=== PATIENT | male | born 1960 | race Caucasian/White ===

== ENCOUNTER 2016-05-07 09:17 | Inpatient (IN) | payer OTHER ==
[~2016-05-07] VITALS: Ht 180.3 cm; Wt 107.6 kg
[2016-05-07] VITALS (8 sets, daily range): BP systolic 135–168; BP diastolic 75–98; PULSE 47–73; RESP 17–20; TEMP 97.8–98.2; O2SAT 94–98
[~2016-05-07 09:17] MED LIST: HYDR-3516 PO; LIPI20TA PO; MECL-62 PO; MUCI600T PO; TOPA25TA8 PO
--- NOTE | 2016-05-07 09:41 | PD ---
HPI Chief Complaint: Headache Time Seen by Provider: 09:33 Travel History International Travel<30 days: No Contact w/Intl Traveler<30days: No Traveled to known affect area: No History of Present Illness HPI 55-year-old male with history of dural venous thrombosis in 2000 and was on anticoagulation for about 3 or 4 years, hospitalization in October 2005 with an MRV with far right transverse venous sinus thrombosis and was on Xarelto, pseudotumor cerebri status post VOUCHER CLERK shunt placement on 12/17/15, no longer on anticoagulation, here for evaluation of headache. Patient reports severe left- sided headache described as an ice pick stabbing into left-sided his head. He had a mild headache last night before going to sleep, however when he woke up this morning his headache was severe. He had nausea and a couple episodes of vomiting this morning. Pain is severe, constant, worse with movements and lying flay, associated with photophobia. No fevers or recent illness. No paresthesias or motor deficits. He has not taken anything for the pain. PFSH Past Medical History Arthritis: No Asthma: Yes Blood Disorders: No Heart Rhythm Problems: No Cancer: No Cardiovascular Problems: Yes (cardiac arrest 2000) High Cholesterol: Yes Chest Pain: No Congestive Heart Failure: No COPD: No Cerebrovascular Accident: Yes (cva 2000) Diminished Hearing: No Endocrine: No Gastrointestinal Disorders: No GERD: No Genitourinary: No Headaches: Yes (HX PAPPILARIEDEMA, ICP, ) Hiatal Hernia: No Hypertension: No Immune Disorder: No Implanted Vascular Access Dvce: No Musculoskeletal: No Neurologic: Yes Psychiatric: No Reproductive: No Respiratory: Yes Immunizations Current: No Migraines: No Seizures: Yes (QUESTIONALBLE FOCAL 2000, NO LONGER MEDICATED FOR) Sleep Apnea: No Ulcer: No Past Surgical History Abdominal Surgery: No Cardiac Surgery: Yes Ear Surgery: Yes Endocrine Surgery: No Eye Surgery: No Genitourinary Surgery: No Gynecologic Surgery: No Neurologic Surgery: No Oral Surgery: Yes (tonsils ) Thoracic Surgery: No Other Surgery: Yes (SHUNT 12/16, clots in brain x 2) Social History Alcohol Use: No Tobacco Use: Yes (02/20 PPD) Substance Use: No Allergies-Medications (Allergen,Severity, Reaction): Coded Allergies: Levaquin (Verified Allergy, Severe, Anaphylaxis, 05/07/16) Uncoded Allergies: Heart lead stickers (Allergy, Mild, 01/18/16) skin truns red and comes off when stickies come off Reported Meds & Prescriptions Reported Meds & Active Scripts Active Topamax (Topiramate) 25 Mg Tab 25 Mg PO DAILY Lipitor (Atorvastatin Calcium) 20 Mg Tab 20 Mg PO DAILY Reported Aspirin 81 Mg Chew 81 Mg CHEW DAILY Review of Systems Except as stated in HPI: all other systems reviewed are Neg Physical Exam Narrative GENERAL: Well-developed, well-nourished, no acute distress. SKIN: Warm and dry. No rash. HEAD: Atraumatic. Normocephalic. Right scalp with subcutaneous VOUCHER CLERK shunt palpable with depressible port. EYES: Pupils equal and round. No scleral icterus. No injection or drainage. Horizontal and vertical nystagmus. ENT: Mucous membranes pink and moist. NECK: Trachea midline. No JVD. No nuchal rigidity. CARDIOVASCULAR: Regular rate and rhythm. RESPIRATORY: No accessory muscle use. Clear to auscultation. Breath sounds equal bilaterally. GASTROINTESTINAL: Abdomen soft, non-tender, nondistended. MUSCULOSKELETAL: No obvious deformities. No clubbing. No cyanosis. No edema. NEUROLOGICAL: Awake and alert. No obvious cranial nerve deficits. Motor grossly within normal limits. Normal speech. PSYCHIATRIC: Appropriate mood and affect; insight and judgment normal. Data Data Last Documented VS Vital Signs Date Time Temp Pulse Resp B/P Pulse Ox O2 Delivery O2 Flow Rate FiO2 05/07/16 09:42 98 05/07/16 09:18 98.1 73 17 155/98 Orders Complete Blood Count With Diff (05/07/16 09:33) Comprehensive Metabolic Panel (05/07/16 09:33) Prothrombin Time / Inr (Pt) (05/07/16 09:33) Act Partial Throm Time (Ptt) (05/07/16 09:33) Iv Access Insert/Monitor (05/07/16 09:33) Ecg Monitoring (05/07/16 09:33) Oximetry (05/07/16 09:33) Sodium Chloride 0.9% Flush (Ns Flush) (05/07/16 09:45) Metoclopramide Inj (Reglan Inj) (05/07/16 09:45) Hydromorphone Pf Inj (Dilaudid Pf Inj) (05/07/16 09:45) Sodium Chlor 0.9% 1000 Ml Inj (Ns 1000 M (05/07/16 09:45) Ct Brain W/O Iv Contrast(Rout) (05/07/16 ) Shunt Series (05/07/16 ) Mrv Brain W Contrast (05/07/16 ) Labs Laboratory Tests Test 05/07/16 10:00 White Blood Count 5.7 TH/MM3 Red Blood Count 4.59 MIL/MM3 Hemoglobin 15.0 GM/DL Hematocrit 42.0 % Mean Corpuscular Volume 91.5 FL Mean Corpuscular Hemoglobin 32.6 PG Mean Corpuscular Hemoglobin 35.6 % Concent Red Cell Distribution Width 13.0 % Platelet Count 221 TH/MM3 Mean Platelet Volume 8.2 FL Neutrophils (%) (Auto) 66.4 % Lymphocytes (%) (Auto) 24.0 % Monocytes (%) (Auto) 4.6 % Eosinophils (%) (Auto) 4.1 % Basophils (%) (Auto) 0.9 % Neutrophils # (Auto) 3.8 TH/MM3 Lymphocytes # (Auto) 1.4 TH/MM3 Monocytes # (Auto) 0.3 TH/MM3 Eosinophils # (Auto) 0.2 TH/MM3 Basophils # (Auto) 0.1 TH/MM3 CBC Comment DIFF FINAL Differential Comment Prothrombin Time 11.2 SEC Prothromb Time International 1.0 RATIO Ratio Activated Partial 27.8 SEC Thromboplast Time Sodium Level 140 MEQ/L Potassium Level 3.9 MEQ/L Chloride Level 105 MEQ/L Carbon Dioxide Level 28.0 MEQ/L Anion Gap 7 MEQ/L Blood Urea Nitrogen 13 MG/DL Creatinine 1.00 MG/DL Estimat Glomerular Filtration 78 ML/MIN Rate Random Glucose 125 MG/DL Calcium Level 8.5 MG/DL Total Bilirubin 0.3 MG/DL Aspartate Amino Transf 11 U/L (AST/SGOT) Alanine Aminotransferase 20 U/L (ALT/SGPT) Alkaline Phosphatase 88 U/L Total Protein 7.2 GM/DL Albumin 3.3 GM/DL [facility] Medical Decision Making Medical Screen Exam Complete: Yes Emergency Medical Condition: Yes Medical Record Reviewed: Yes Differential Diagnosis VOUCHER CLERK shunt malfunction, dural venous thrombosis, tension headache, cluster headache, migraine headache, SAH/meningitis/encephalitis less likely, Narrative Course Vital signs show heart rate 73, blood pressure 155/98, pulse ox 98% on room air , oral temp of 98.1F. CBC is unremarkable. CMP is unremarkable. CT head: No acute intracranial disease. Scattered sinus disease. Shunt series: Intact shunt. Case discussed with on-call neurosurgeon Dr. Frederick who recommends MRV to rule out thrombosis. If this is negative, shuntogram may need to be ordered. The patient was given a liter of normal saline IV, IV Reglan, and IV Dilaudid with moderate improvement in symptoms. He now rates his pain at 4 out of 10. Case discussed with medical accountant Dr. Michel. The patient will be admitted to their service. Diagnosis Primary Impression: Intractable headache Qualified Code: R51 - Acute intractable headache, unspecified headache type Admitting Information Admitting Physician Requests: Admit Joel Delgado MD May 07, 2016 09:41
[2016-05-07] MEDS ORDERED: SODIUM CHLORIDE 0.9% FLUSH 5 ML FLUSH IVF PRN (09:45)
[2016-05-07] MEDS ORDERED: HYDROmorphone HCL PF 1 MG/ML VIAL IV PUSH ONE (09:45)
[2016-05-07] MEDS ORDERED: SODIUM CHLOR 0.9% 1000 ML INJ 1,000 ML IV ONE (09:45)
[2016-05-07] MEDS ORDERED: METOCLOPRAMIDE HCL 10 MG/2 ML VIAL IV PUSH ONE (09:45)
--- NOTE | 2016-05-07 10:00 | RADRPT ---
EXAM DATE/TIME: 05/07/2016 09:46 [facility] COMPARISON: CT BRAIN W/O CONTRAST, January 19, 2016, 4:16. INDICATIONS : Severe headache. RADIATION DOSE: 46.43 CTDIvol (mGy) MEDICAL HISTORY : Seizures. SURGICAL HISTORY : Shunt. ENCOUNTER: Initial ACUITY: 1 day PAIN SCALE: 8/10 LOCATION: Bilateral cranial TECHNIQUE: Multiple contiguous axial images were obtained of the head. Using automated exposure control and adj ustment of the mA and/or kV according to patient size, radiation dose was kept as low as reasonably a chievable to obtain optimal diagnostic quality images. FINDINGS: CEREBRUM: A right frontal ventriculostomy catheter is unchanged in position. The ventricles are normal for age. No evidence of midline shift, mass lesion, hemorrhage or acute infarction. No extra-axial fluid co llections are seen. POSTERIOR FOSSA: The cerebellum and brainstem are intact. The 4th ventricle is midline. The cerebellopontine angle i s unremarkable. EXTRACRANIAL: The visualized portion of the orbits is intact. Scattered sinus disease. SKULL: The calvaria is intact. No evidence of skull fracture. CONCLUSION: No acute intracranial disease. Scattered sinus disease. Tre Marks MD on May 07, 2016 at 9:57 Board Certified Radiologist. This report was verified electronically.
[2016-05-07 10:21] LABS: AUTOMATED NEUTROPHIL # 3.8 TH/MM3 (1.8-7.7); BASOPHIL # 0.1 TH/MM3 (0-0.2); BASOPHIL % 0.9 % (0.0-2.0); EOSINOPHIL # 0.2 TH/MM3 (0-0.4); EOSINOPHIL % 4.1 % (0.0-4.0); HEMO FLAGS DIFF FINAL; LYMPHOCYTE # 1.4 TH/MM3 (1.0-4.8); MEAN CELL VOLUME 91.5 FL (80.0-100.0); MEAN CORPUSCULAR HEMOGLOBIN 32.6 PG (27.0-34.0); MEAN CORPUSCULAR HGB CONC 35.6 % (32.0-36.0); MONO % 4.6 % (0.0-8.0); NEUT % 66.4 % (16.0-70.0); PLATELET COUNT 221 TH/MM3 (150-450); RED BLOOD COUNT 4.59 MIL/MM3 (4.50-5.90); WHITE BLOOD COUNT 5.7 TH/MM3 (4.0-11.0)
--- NOTE | 2016-05-07 10:25 | RADRPT ---
EXAM DATE/TIME: 05/07/2016 09:56 [facility] COMPARISON: SHUNT SERIES, January 18, 2016, 21:52. INDICATIONS : Head pressure post shunt placement in November. MEDICAL HISTORY : None. SURGICAL HISTORY : Shunt. ENCOUNTER: Initial ACUITY: 4 - 6 months PAIN SCORE: 6/10 LOCATION: Bilateral head. FINDINGS: Radiograph of the skull, neck, chest and abdomen performed to evaluate shunt patency. The shunt cath eter is seen entering the right frontal region with its tip in the region of the body of the left lat eral ventricle The catheter is continuous in its course terminating in the left pelvis No catheter disruption is roger ntified. The visualized heart, lungs and abdominal structures are intact. CONCLUSION: Intact shunt. Tre Marks MD on May 07, 2016 at 10:22 Board Certified Radiologist. This report was verified electronically.
[2016-05-07] MEDS ORDERED: ASPI81CH CHEW (10:27)
[2016-05-07 10:33] LABS: APTT (PATIENT) 27.8 SEC (24.3-30.1); PROTHROMBIN TIME - PATIENT 11.2 SEC (9.8-11.6)
[2016-05-07 10:46] LABS: ALKALINE PHOSPHATASE 88 U/L (45-117); ALT (GPT) 20 U/L (12-78); ANION GAP 7 MEQ/L (5-15); AST (GOT) 11 U/L (15-37); BLOOD UREA NITROGEN 13 MG/DL (7-18); CHLORIDE 105 MEQ/L (98-107); GLOMERULAR FILTRATION RATE 78 ML/MIN (>89); SODIUM (NA) 140 MEQ/L (136-145); TOTAL BILIRUBIN ADULT 0.3 MG/DL (0.2-1.0)
[2016-05-07 10:59] LABS: POTASSIUM 3.9 MEQ/L (3.5-5.1)
[2016-05-07] MEDS ORDERED: SODIUM CHLORIDE 0.9% FLUSH 5 ML FLUSH FLUSH PRN (11:45)
[2016-05-07] MEDS ORDERED: NALOXONE HCL 0.4 MG/ML AMP IV PRN (11:45)
[2016-05-07] MEDS ORDERED: ACETAMINOPHEN/HYDROcodone 325 MG/5 MG TAB PO PRN (11:45)
[2016-05-07] MEDS ORDERED: ACETAMINOPHEN 325 MG TAB PO PRN (11:45)
[2016-05-07] MEDS ORDERED: ENALAPRILAT 1.25 MG/ML VIAL IV PRN (11:45)
--- NOTE | 2016-05-07 11:51 | HHI.HP ---
[facility] Service Family Medicine Primary Care Physician No Primary Care Physician Admission Diagnosis intractable headache Diagnoses: Chief Complaint: headache International Travel<30 Days: No Contact w/Intl Traveler<30days: No Known Affected Area: No History of Present Illness 55 y/o male with history of dural venous thrombosis and pseudotumor cerebri, s/ p HIDE AND SKIN CLASSER shunt placement presents with headache. States he sneezed last night, which game him a mild headache. Went to sleep. Woke up with a headache, rates it 10/10, very severe. Then his nausea/vomiting started. Vomited several times. Also having some blurry vision. The pain is mainly on his left temporal side. Been constant, pain waxed and wained. Sharp and stabbing. 2nd worse headache of life. states that when he gets bad headaches, abnormal arm/leg movements , history of previous stroke. History of similar pain, working up possible pinched nerve in back of neck. No neurological symptoms. Denies any dizziness, ataxia. No changes in sensation/motor function. He is currently being worked up for increased intracranial pressure, that may be causing a pinched nerve. Pain worse when laying down. Stretching his neck, sometimes helps. Cough/sneezing makes it worse. Didn't take any medication for it. Woke up this morning with chills, diaphoresis. Has had productive cough for week. Has history of asthma, bronchitis. Is a smoker. History of stroke, cardiac arrest in 2000. History of dural venous thrombosis in 2000 and was on anticoagulation for about 3 or 4 years, hospitalization in October 2005 with an MRV with far right transverse venous sinus thrombosis and was on Xarelto, pseudotumor cerebri status post HIDE AND SKIN CLASSER shunt placement on , no longer on anticoagulation. Sees neurologist, Dr. Euceda. (Nick Feng MD R1) Review of Systems Constitutional: DENIES: Fever, Weight loss, Chills, Dizziness, Night Sweats Eyes: DENIES: Blurred vision, Double Vision Ears, nose, mouth, throat: DENIES: Hearing loss, Ear Pain, Running Nose Respiratory: COMPLAINS OF: Cough, DENIES: Shortness of breath Cardiovascular: DENIES: Chest pain, Palpitations, Dyspnea on Exertion, Lower Extremity Edema Gastrointestinal: COMPLAINS OF: Nausea, DENIES: Abdominal pain, Constipation, Diarrhea, Vomiting Genitourinary: DENIES: Urgency, Dysuria Musculoskeletal: DENIES: Joint pain, Muscle aches Integumentary: DENIES: Abnormal pigmentation Hematologic/lymphatic: DENIES: Bruising, Lymphadenopathy Neurologic: DENIES: Abnormal gait, Headache Psychiatric: DENIES: Anxiety, Depression (Nick Feng MD R1) Past Family Social History Past Medical History Asthma Thrombosis Protein C deficiency 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 Past Surgical History HIDE AND SKIN CLASSER shunt placement Left knee-2006 Sinus surgery-2000 Heart cath-2000 Reported Medications Reported Meds & Active Scripts Active Topamax (Topiramate) 25 Mg Tab 25 Mg PO DAILY Lipitor (Atorvastatin Calcium) 20 Mg Tab 20 Mg PO DAILY Reported Aspirin 81 Mg Chew 81 Mg CHEW DAILY (Nick Feng MD R1) Allergies: Coded Allergies: Levaquin (Verified Allergy, Severe, Anaphylaxis, 05/07/16) Uncoded Allergies: Heart lead stickers (Allergy, Mild, 01/18/16) skin truns red and comes off when stickies come off Active Ordered Medications Active Medications Hydromorphone HCl 1 mg 1 mg ONCE ONCE IV PUSH Last administered on 05/07/16 10 :12; Admin Dose 1 MG; Start 05/07/16 at 09:45; Stop 05/07/16 at 09:46; Status DC IV Flush (NS Flush) 2 ml UNSCH PRN IVF; Start 05/07/16 at 09:45 Metoclopramide HCl (Reglan Inj) 10 mg ONCE ONCE IV PUSH Last administered on 10:12; Admin Dose 10 MG; Start 05/07/16 at 09:45; Stop 05/07/16 at 09:46 ; Status DC Sodium Chloride (NS 1000 ml Inj) 1,000 ml @ 999 mls/hr BOLUS ONCE IV Last administered on 05/07/16 10:11; Admin Dose 999 MLS/HR; Start 05/07/16 at 09:45 ; Stop 05/07/16 at 10:45; Status DC Family History Mother-Heart disease, DM Father-cancer Social History Tobacco-40 years pack history Alcohol-rarely Illicit drug use-denies (Nick Feng MD R1) Physical Exam Vital Signs Vital Signs Date Time Temp Pulse Resp B/P Pulse Ox O2 Delivery O2 Flow Rate FiO2 05/07/16 09:42 98 05/07/16 09:18 98.1 73 17 155/98 95 Physical Exam GENERAL: This is a well-nourished, well-developed patient, in no apparent distress. SKIN: No rashes, ecchymoses or lesions. Cool and dry. HEAD: Atraumatic. Normocephalic. No temporal tenderness. Some lower left neck/ upper shoulder tenderness to palpation. EYES: Pupils equal round and reactive. Extraocular motions intact. Horizontal nystagmus with during cranial nerve testing ENT: Throat without erythema, tonsillar hypertrophy or exudate. Uvula midline. Airway patent. NECK: Trachea midline. No JVD or lymphadenopathy. Supple, nontender. CARDIOVASCULAR: Regular rate and rhythm without murmurs, gallops, or rubs. RESPIRATORY: Clear to auscultation. Breath sounds equal bilaterally. No wheezes , rales, or rhonchi. GASTROINTESTINAL: Abdomen soft, non-tender, nondistended. No hepato-splenomegaly , or palpable masses. No guarding. MUSCULOSKELETAL: Extremities without clubbing, cyanosis, or edema. No joint tenderness, effusion, or edema noted. No calf tenderness. NEUROLOGICAL: Awake and alert. Cranial nerves II through XII intact. Motor and sensory grossly within normal limits. Normal speech. Laboratory Laboratory Tests Test 05/07/16 10:00 White Blood Count 5.7 Red Blood Count 4.59 Hemoglobin 15.0 Hematocrit 42.0 Mean Corpuscular Volume 91.5 Mean Corpuscular Hemoglobin 32.6 Mean Corpuscular Hemoglobin 35.6 Concent Red Cell Distribution Width 13.0 Platelet Count 221 Mean Platelet Volume 8.2 Neutrophils (%) (Auto) 66.4 Lymphocytes (%) (Auto) 24.0 Monocytes (%) (Auto) 4.6 Eosinophils (%) (Auto) 4.1 Basophils (%) (Auto) 0.9 Neutrophils # (Auto) 3.8 Lymphocytes # (Auto) 1.4 Monocytes # (Auto) 0.3 Eosinophils # (Auto) 0.2 Basophils # (Auto) 0.1 CBC Comment DIFF FINAL Differential Comment Prothrombin Time 11.2 Prothromb Time International 1.0 Ratio Activated Partial 27.8 Thromboplast Time Sodium Level 140 Potassium Level 3.9 Chloride Level 105 Carbon Dioxide Level 28.0 Anion Gap 7 Blood Urea Nitrogen 13 Creatinine 1.00 Estimat Glomerular Filtration 78 Rate Random Glucose 125 Calcium Level 8.5 Total Bilirubin 0.3 Aspartate Amino Transf 11 (AST/SGOT) Alanine Aminotransferase 20 (ALT/SGPT) Alkaline Phosphatase 88 Total Protein 7.2 Albumin 3.3 (Nick Feng MD R1) Result Diagram: 05/07/16 1000 05/07/16 1000 Imaging Last Impressions Shunt Study (Imaging) 05/07/16 0000 Signed Impressions: Service Date/Time: Saturday, May 07, 2016 09:56 - CONCLUSION: Intact shunt. Tre Marks MD Head CT 05/07/16 0000 Signed Impressions: Service Date/Time: Saturday, May 07, 2016 09:46 - CONCLUSION: No acute intracranial disease. Scattered sinus disease. Tre Marks MD (Nick Feng MD R1) Assessment and Plan Assessment and Plan 55 y/o male with history of dural sinus thrombosis and HIDE AND SKIN CLASSER shunt presents with headache. Neurosurgery aware of patient and is undergoing head imaging. Will admit for pain control and management by neuro. Code Status Full Discussed Condition With Dr. Kaba & Dr. Diaz (Nick Feng MD R1) Attending Attestation Patient seen and examined. Case reviewed and discussed with the resident team. Agree with plan of care as discussed with me and documented in the resident note. (Alexia Kaba MD) Problem List: (1) Headache Status: Acute Plan: DDx: HIDE AND SKIN CLASSER shunt malfunction, thrombosis, migraine, tension headache, pinched nerve, temporal arteritis History of cranial venous thromboses and pseudotumor cerebri. Acute onset of headache since last night. No red flag symptoms. Head CT: No acute disease Shunt study: Intact shunt -Neurosurgery consult: Appreciate recs -Dr. Mirza aware of patient -MRV and MRI pending -Further recs after results of images -Continue home Topamax 25 mg by mouth twice a day -Pain control with Tylenol, [place], morphine when necessary -Zofran when necessary nausea -Holding chemoprophylaxis for possible intervention tomorrow (2) Pseudotumor cerebri Status: Chronic Plan: History of pseudotumor stream I. HIDE AND SKIN CLASSER shunt in place. History of serial LPs to decrease pressure. -See plan above. Appreciate neuro surgery recs (3) Hyperlipidemia Status: Chronic Plan: Continue home Lipitor 20 mg daily (4) Nicotine dependence Status: Chronic Plan: Patient requests nicotine patch Discussed risks of smoking and options for quitting (5) FEN Status: Acute Plan: Fluids: none Electrolytes: wnl. continue replace as needed Nutrition: Regular DVT ppx: SCDs for possible surgery tomorrow (Nick Feng MD R1) Physician Certification 2 Midnight Certification Type: Admission for Inpatient Services Order for Inpatient Services The services are ordered in accordance with Medicare regulations or non- Medicare payer requirements, as applicable. In the case of services not specified as inpatient-only, they are appropriately provided as inpatient services in accordance with the 2-midnight benchmark. Estimated LOS (days): 2 days is the estimated time the patient will need to remain in the hospital, assuming treatment plan goals are met and no additional complications. Post-Hospital Plan: Home (Nick Feng MD R1) Problem Qualifiers (1) Headache: (2) Hyperlipidemia: Qualified Code: E78.00 - Pure hypercholesterolemia (3) Nicotine dependence: Qualified Code: F17.210 - Cigarette nicotine dependence without complication Nick Feng MD R1 May 07, 2016 11:51 Alexia Kaba MD May 07, 2016 14:34
[2016-05-07] MEDS ORDERED: RESP: ALBUTEROL 2.5 MG/3 ML NEB (PRN) NEB (12:00)
--- NOTE | 2016-05-07 13:07 | RADRPT ---
EXAM DATE/TIME: 05/07/2016 12:35 [facility] COMPARISON: No previous studies available for comparison. INDICATIONS : Pre MRI shunt valve. MEDICAL HISTORY : Codman shunt SURGICAL HISTORY : Codman shunt ENCOUNTER: Initial ACUITY: 1 day PAIN SCORE: 0/10 LOCATION: Right skull FINDINGS: Examination of the skull demonstrates no evidence of fracture. The shunt series pressure valve is at 135. CONCLUSION: Pressure setting is at 135. Tre Marks MD on May 07, 2016 at 13:01 Board Certified Radiologist. This report was verified electronically.
--- NOTE | 2016-05-07 13:43 | RADRPT ---
EXAM DATE/TIME: 05/07/2016 13:23 [facility] COMPARISON: SKULL (1VW), May 07, 2016, 12:35. INDICATIONS : Post MRI. MEDICAL HISTORY : Codman Shunt. SURGICAL HISTORY : Codman Shunt. ENCOUNTER: Subsequent ACUITY: 1 day PAIN SCORE: 0/10 LOCATION: Skull. FINDINGS: Examination of the skull demonstrates no evidence of fracture. The valve setting remains the same at 135. CONCLUSION: Post MRI imaging demonstrates unchanged position of the valve setting at 135 degrees. Tre Marks MD on May 07, 2016 at 13:41 Board Certified Radiologist. This report was verified electronically.
--- NOTE | 2016-05-07 13:54 | RADRPT ---
EXAM DATE/TIME: 05/07/2016 13:01 [facility] COMPARISON: CT BRAIN W/O CONTRAST, May 07, 2016, 9:46. MRI BRAIN W/O CONTRAST, November 07, 2015, 10:01. INDICATIONS : Cephalgia. Sinusitis. MEDICAL HISTORY : None. SURGICAL HISTORY : BLASTING ENTRY SPECIALIST shunt. ENCOUNTER: Initial ACUITY: 1 day PAIN SCORE: 5/10 LOCATION: cranial TECHNIQUE: Multiplanar, multisequence MRI of the brain was performed without contrast. FINDINGS: CEREBRUM: The ventricles are normal for age. No evidence of midline shift, mass lesion, hemorrhage or acute in farction. No extraaxial fluid collections are seen. The pituitary gland and suprasellar cistern are normal in configuration. Shunt catheter tubing is present via a right frontal approach. The tube women's lacrosse coach sses midline with the tip projected in the left basal ganglia. WHITE MATTER: No significant signal abnormalities are seen in the white matter. POSTERIOR FOSSA: The cerebellum and brainstem are intact. The 4th ventricle is midline. The cerebellopontine angle is unremarkable. The cerebellar tonsils are normal in position. DIFFUSION IMAGING: No focal areas of restricted diffusion are seen. No evidence of acute infarction. EXTRACRANIAL: The visualized portions of the orbits are unremarkable. There is circumferential and muscle thickenin g in the right maxillary sinus. CONCLUSION: 1. No acute hemorrhage, mass or infarction. 2. Ventricular shunt catheter in place with the tip projected in the left basal ganglia. There is no evidence of hydrocephalus. 3. Mucosal thickening in the right maxillary sinus. Thierry Marin MD on May 07, 2016 at 13:48 Board Certified Radiologist. This report was verified electronically.
--- NOTE | 2016-05-07 14:31 | HHI.FPPN ---
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 He has significant exacerbation of his pain if he coughs or sneezes, worse in left neck. He had pain 10;10 at initial eval, later 8:10 and now 4:10. He has not had a headache like this before and normally if he has a headache he doesn't take anything. He had chills and sweats this a.m. but no fever. His shunt was placed in this hospital. See H&P for this admission for additional past, family and social history. ROS + as noted above, all other systems negative. Objective Vitals Vital Signs Date Time Temp Pulse Resp B/P Pulse Ox O2 Delivery O2 Flow Rate FiO2 05/07/16 13:32 52 18 140/75 95 Room Air 05/07/16 11:57 50 18 157/81 94 Room Air 05/07/16 11:47 97 21 05/07/16 09:42 98 05/07/16 09:18 98.1 73 17 155/98 95 Result Diagram: 05/07/16 1000 05/07/16 1000 Other Results Laboratory Tests Test 05/07/16 10:00 White Blood Count 5.7 TH/MM3 Red Blood Count 4.59 MIL/MM3 Hemoglobin 15.0 GM/DL Hematocrit 42.0 % Mean Corpuscular Volume 91.5 FL Mean Corpuscular Hemoglobin 32.6 PG Mean Corpuscular Hemoglobin 35.6 % Concent Red Cell Distribution Width 13.0 % Platelet Count 221 TH/MM3 Mean Platelet Volume 8.2 FL Neutrophils (%) (Auto) 66.4 % Lymphocytes (%) (Auto) 24.0 % Monocytes (%) (Auto) 4.6 % Eosinophils (%) (Auto) 4.1 % Basophils (%) (Auto) 0.9 % Neutrophils # (Auto) 3.8 TH/MM3 Lymphocytes # (Auto) 1.4 TH/MM3 Monocytes # (Auto) 0.3 TH/MM3 Eosinophils # (Auto) 0.2 TH/MM3 Basophils # (Auto) 0.1 TH/MM3 CBC Comment DIFF FINAL Differential Comment Prothrombin Time 11.2 SEC Prothromb Time International 1.0 RATIO Ratio Activated Partial 27.8 SEC Thromboplast Time Sodium Level 140 MEQ/L Potassium Level 3.9 MEQ/L Chloride Level 105 MEQ/L Carbon Dioxide Level 28.0 MEQ/L Anion Gap 7 MEQ/L Blood Urea Nitrogen 13 MG/DL Creatinine 1.00 MG/DL Estimat Glomerular Filtration 78 ML/MIN Rate Random Glucose 125 MG/DL Calcium Level 8.5 MG/DL Total Bilirubin 0.3 MG/DL Aspartate Amino Transf 11 U/L (AST/SGOT) Alanine Aminotransferase 20 U/L (ALT/SGPT) Alkaline Phosphatase 88 U/L Total Protein 7.2 GM/DL Albumin 3.3 GM/DL Imaging Last Impressions Skull X-Ray 05/07/16 0000 Signed Impressions: Service Date/Time: Saturday, May 07, 2016 13:23 - CONCLUSION: Post MRI imaging demonstrates unchanged position of the valve setting at 135 degrees. Tre Marks MD Shunt Study (Imaging) 05/07/16 0000 Signed Impressions: Service Date/Time: Saturday, May 07, 2016 09:56 - CONCLUSION: Intact shunt. Tre Marks MD Head/Brain Mag Res Venography 05/07/16 Signed Impressions: Service Date/Time: Saturday, May 07, 2016 13:01 - CONCLUSION: No venous thrombus is seen. Tre Marks MD Head CT 05/07/16 Signed Impressions: Service Date/Time: Saturday, May 07, 2016 09:46 - CONCLUSION: No acute intracranial disease. Scattered sinus disease. Tre Marks MD Brain MRI 05/07/16 0000 Signed Impressions: Service Date/Time: Saturday, May 07, 2016 13:01 - CONCLUSION: 1. No acute hemorrhage, mass or infarction. 2. Ventricular shunt catheter in place with the tip projected in the left basal ganglia. There is no evidence of hydrocephalus. 3. Mucosal thickening in the right maxillary sinus. Thierry Marin MD Objective Remarks O. CONSTITUTIONAL/GEN: normally nourished, in NAD. EYES: conjunctiva normal, PERRLA, EOMI. ENT: Mouth and pharynx normal. MM moist. NECK: No lymphadenopathy LUNGS: clear A-P, respiratory effort is normal. CARDIOVASCULAR: RR without murmur or gallop. No significant edema. GI/ABD: soft without masses, without organomegaly. BS + NEURO: No focal deficits. SKIN: color normal, no rashes noted. HEME/LYMPH: no bruising, petechia or significant adenopathy MUSC: Extremities are normal in appearance. PSYCH/MENTAL STATUS: Alert and oriented x 3. 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 Neurosurgery aware of patient and is undergoing head imaging. Will admit for pain control and management by neuro. Attending Attestation Patient seen and examined. Case reviewed and discussed with the resident team. Agree with plan of care as discussed with me and documented in the resident note. 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 Acute onset of headache since last night. No red flag symptoms. Head CT: No acute disease Shunt study: Intact shunt -Neurosurgery consult: Appreciate recs -Dr. Mirza aware of patient -MRV and MRI pending -Further recs after results of images -Continue home Topamax 25 mg by mouth twice a day -Pain control with Tylenol, [place], morphine when necessary -Zofran when necessary nausea -Holding chemoprophylaxis for possible intervention tomorrow (2) Pseudotumor cerebri Status: Chronic Plan: History of pseudotumor stream I. 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 History of serial LPs to decrease pressure. -See plan above. Appreciate neuro surgery recs (3) Hyperlipidemia Status: Chronic Plan: Continue home Lipitor 20 mg daily (4) Nicotine dependence Status: Chronic Plan: Patient requests nicotine patch Discussed risks of smoking and options for quitting (5) FEN Status: Acute Plan: Fluids: none Electrolytes: wnl. continue replace as needed Nutrition: Regular DVT ppx: SCDs for possible surgery tomorrow Problem Qualifiers (1) Headache: (2) Hyperlipidemia: Qualified Code: E78.00 - Pure hypercholesterolemia (3) Nicotine dependence: Qualified Code: F17.210 - Cigarette nicotine dependence without complication Alexia Kaba MD May 07, 2016 14:31
[2016-05-07] MEDS ORDERED: GADODIAMIDE PF 287 MG/ML 20 ML VIAL (for RAD MRI) IV ONE (14:42)
--- NOTE | 2016-05-07 14:49 | RADRPT ---
EXAM DATE/TIME: 05/07/2016 13:01 COMPARISON: MRV BRAIN W/WO CONTRAST, December 12, 2015, 2:11. INDICATIONS : Thrombosis. CONTRAST: 20 cc Omniscan (gadodiamide) IV MEDICAL HISTORY : None. 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 ENCOUNTER: Initial ACUITY: 1 day PAIN SCORE: 7/10 LOCATION: cranial FINDINGS: No filling defects within the venous system of the intracranial vasculature. The superior, sagittal, straight, sigmoid and transverse sinuses are patent. CONCLUSION: No venous thrombus is seen. Tre Marks MD on May 07, 2016 at 14:45 Board Certified Radiologist. This report was verified electronically.
[2016-05-07] MEDS: ACETAMINOPHEN/HYDROcodone 325 MG/10 MG TAB PO PRN ×2 (14:58→20:44)
[2016-05-07] MEDS: TOPIRAMATE 25 MG TAB PO SCH (20:43)
[2016-05-07] MEDS: ATORVASTATIN 20 MG TAB PO SCH (20:43)
[2016-05-07] MEDS: SODIUM CHLORIDE 0.9% FLUSH 5 ML FLUSH FLUSH SCH (20:44)
[2016-05-07] MEDS: ONDANSETRON HCL 4 MG/2 ML VIAL IVP PRN (21:50)
[2016-05-08] VITALS (7 sets, daily range): BP systolic 116–138; BP diastolic 60–75; PULSE 46–58; RESP 18–20; TEMP 97.6–98.1; O2SAT 91–98
[2016-05-08] MEDS: ACETAMINOPHEN/HYDROcodone 325 MG/10 MG TAB PO PRN ×3 (01:25→20:25)
[2016-05-08 07:02] LABS: AUTOMATED NEUTROPHIL # 3.7 TH/MM3 (1.8-7.7); BASOPHIL % 0.7 % (0.0-2.0); EOSINOPHIL # 0.2 TH/MM3 (0-0.4); HEMATOCRIT 39.6 % (39.0-51.0); HEMO FLAGS DIFF FINAL; LYMPH % 35.6 % (9.0-44.0); LYMPHOCYTE # 2.4 TH/MM3 (1.0-4.8); MEAN CELL VOLUME 92.5 FL (80.0-100.0); MEAN CORPUSCULAR HGB CONC 33.5 % (32.0-36.0); MONO % 5.8 % (0.0-8.0); NEUT % 54.9 % (16.0-70.0); PLATELET COUNT 196 TH/MM3 (150-450); RED BLOOD COUNT 4.28 MIL/MM3 (4.50-5.90); RED CELL DISTRIBUTION WIDTH 13.1 % (11.6-17.2); WHITE BLOOD COUNT 6.8 TH/MM3 (4.0-11.0)
[2016-05-08 07:07] LABS: BICARBONATE 26.7 MEQ/L (21.0-32.0); POTASSIUM 3.7 MEQ/L (3.5-5.1)
[2016-05-08] MEDS ORDERED: TOPIRAMATE 25 MG TAB PO SCH (09:00)
[2016-05-08] MEDS ORDERED: ATORVASTATIN 20 MG TAB PO SCH (09:00)
[2016-05-08] MEDS: TOPIRAMATE 25 MG TAB PO SCH ×2 (09:30→20:25)
[2016-05-08] MEDS: SODIUM CHLORIDE 0.9% FLUSH 5 ML FLUSH FLUSH SCH ×2 (09:32→20:24)
--- NOTE | 2016-05-08 11:24 | PD.CONS ---
[facility] Service neurosur Consult Requested By Antoni Delgado Reason for Consult Hydrocephalus Primary Care Physician No Primary Care Physician History of Present Illness This is a 55 y/o male with history of dural venous thrombosis and pseudotumor cerebri, s/p DIGITAL SPECIALIST shunt placement presents with headaches. He states he sneezed which game him a mild headache. Went to sleep. Woke up with severe headaches. Then he developed his nausea/vomiting. He vomited several times.He had blurry vision. The pain is mainly on his left temporal side, pain waxed and wained. Sharp and stabbing. He history of previous stroke and possible occipital neuralgia. Denies any dizziness, ataxia. No changes in sensation/motor function. Stretching his neck, sometimes helps. Cough/sneezing makes it worse. He suffered a stroke, cardiac arrest in 2000. History of dural venous thrombosis in 2000 and was on anticoagulation for about 3 or 4 years, status post DIGITAL SPECIALIST shunt placement on . Neurosurgical consultation was requested -denies (Nick Feng MD R1) Physical Exam Physical Exam Vital Signs Vital Signs Date Time Temp Pulse Resp B/P Pulse Ox O2 Delivery O2 Flow Rate FiO2 05/07/16 09:42 98 05/07/16 09:18 98.1 73 17 155/98 95 Physical Exam GENERAL: This is a well-nourished, well-developed patient, in no apparent distress. SKIN: No rashes, ecchymoses or lesions. Cool and dry. HEAD: Atraumatic. Normocephalic. No temporal tenderness. Some lower left neck/ upper shoulder tenderness to palpation. EYES: Pupils equal round and reactive. Extraocular motions intact. Horizontal nystagmus with during cranial nerve testing ENT: Throat without erythema, tonsillar hypertrophy or exudate. Uvula midline. Airway patent. NECK: Trachea midline. No JVD or lymphadenopathy. Supple, nontender. CARDIOVASCULAR: Regular rate and rhythm without murmurs, gallops, or rubs. RESPIRATORY: Clear to auscultation. Breath sounds equal bilaterally. No wheezes , rales, or rhonchi. GASTROINTESTINAL: Abdomen soft, non-tender, nondistended. No hepato-splenomegaly , or palpable masses. No guarding. MUSCULOSKELETAL: Extremities without clubbing, cyanosis, or edema. No joint tenderness, effusion, or edema noted. No calf tenderness. NEUROLOGICAL: Awake and alert. Cranial nerves II through XII intact. Motor and sensory grossly within normal limits. Normal speech. Laboratory Laboratory Tests Test 05/07/16 10:00 White Blood Count 5.7 Red Blood Count 4.59 Hemoglobin 15.0 Hematocrit 42.0 Mean Corpuscular Volume 91.5 Mean Corpuscular Hemoglobin 32.6 Mean Corpuscular Hemoglobin 35.6 Concent Red Cell Distribution Width 13.0 Platelet Count 221 Mean Platelet Volume 8.2 Neutrophils (%) (Auto) 66.4 Lymphocytes (%) (Auto) 24.0 Monocytes (%) (Auto) 4.6 Eosinophils (%) (Auto) 4.1 Basophils (%) (Auto) 0.9 Neutrophils # (Auto) 3.8 Lymphocytes # (Auto) 1.4 Monocytes # (Auto) 0.3 Eosinophils # (Auto) 0.2 Basophils # (Auto) 0.1 CBC Comment DIFF FINAL Differential Comment Prothrombin Time 11.2 Prothromb Time International 1.0 Ratio Activated Partial 27.8 Thromboplast Time Sodium Level 140 Potassium Level 3.9 Chloride Level 105 Carbon Dioxide Level 28.0 Anion Gap 7 Blood Urea Nitrogen 13 Creatinine 1.00 Estimat Glomerular Filtration 78 Rate Random Glucose 125 Calcium Level 8.5 Total Bilirubin 0.3 Aspartate Amino Transf 11 (AST/SGOT) Alanine Aminotransferase 20 (ALT/SGPT) Alkaline Phosphatase 88 Total Protein 7.2 Albumin 3.3 (Nick Fegn MD R1) Result Diagram: 05/07/16 1000 05/07/16 1000 Imaging Last Impressions Shunt Study (Imaging) 05/07/16 0000 Signed Impressions: Service Date/Time: Saturday, May 07, 2016 09:56 - CONCLUSION: Intact shunt. Tre Marks MD Head CT 05/07/16 0000 Signed Impressions: Service Date/Time: Saturday, May 07, 2016 09:46 - CONCLUSION: No acute intracranial disease. Scattered sinus disease. Tre Marks MD (Nick Feng MD R1) Septic Shock Reassessment Septic Shock Reassessment Assessment and Plan Assessment and Plan Assessment and Plan 55 y/o male with history of dural sinus thrombosis and DIGITAL SPECIALIST shunt presents with headache. Neurosurgery aware of patient and is undergoing head imaging. Will admit for pain control and management by neuro. Code Status Full Discussed Condition With Dr. Kaba & Dr. Diaz (Nick Feng MD R1) Attending Attestation Patient seen and examined. Case reviewed and discussed with the resident team. Agree with plan of care as discussed with me and documented in the resident note. (Alexia Kaba MD) Problem List: (1) Headache Status: Acute Plan: DDx: DIGITAL SPECIALIST shunt malfunction, thrombosis, migraine, tension headache, pinched nerve, temporal arteritis History of cranial venous thromboses and pseudotumor cerebri. Acute onset of headache since last night. No red flag symptoms. Head CT: No acute disease Shunt study: Intact shunt -Neurosurgery consult: Appreciate recs -Dr. Mirza aware of patient -MRV and MRI pending -Further recs after results of images -Continue home Topamax 25 mg by mouth twice a day -Pain control with Tylenol, [place], morphine when necessary -Zofran when necessary nausea -Holding chemoprophylaxis for possible intervention tomorrow (2) Pseudotumor cerebri Status: Chronic Plan: History of pseudotumor stream I. DIGITAL SPECIALIST shunt in place. History of serial LPs to decrease pressure. -See plan above. Appreciate neuro surgery recs (3) Hyperlipidemia Status: Chronic Plan: Continue home Lipitor 20 mg daily (4) Nicotine dependence Status: Chronic Plan: Patient requests nicotine patch Discussed risks of smoking and options for quitting (5) FEN Status: Acute Plan: Fluids: none Electrolytes: wnl. continue replace as needed Nutrition: Regular DVT ppx: SCDs for possible surgery tomorrow Review of Systems Constitutional: DENIES: Fever, Weight loss, Chills, Dizziness, Night Sweats Eyes: DENIES: Blurred vision, Double Vision Ears, nose, mouth, throat: DENIES: Hearing loss, Ear Pain, Running Nose Respiratory: COMPLAINS OF: Cough, DENIES: Shortness of breath Cardiovascular: DENIES: Chest pain, Palpitations, Dyspnea on Exertion, Lower Extremity Edema Gastrointestinal: COMPLAINS OF: Nausea, DENIES: Abdominal pain, Constipation, Diarrhea, Vomiting Genitourinary: DENIES: Urgency, Dysuria Musculoskeletal: DENIES: Joint pain, Muscle aches Integumentary: DENIES: Abnormal pigmentation Hematologic/lymphatic: DENIES: Bruising, Lymphadenopathy Neurologic: DENIES: Abnormal gait, Headache Psychiatric: DENIES: Anxiety, Depression Past Family Social History Allergies: Coded Allergies: Levaquin (Verified Allergy, Severe, Anaphylaxis, 05/07/16) Uncoded Allergies: Heart lead stickers (Allergy, Mild, 01/18/16) skin truns red and comes off when stickies come off Past Medical History Asthma Thrombosis Protein C deficiency 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 Past Surgical History DIGITAL SPECIALIST shunt Left knee-2006 Sinus surgery-2000 Heart cath-2000 Reported Medications Topamax (Topiramate) 25 Mg Tab 25 Mg PO DAILY Lipitor (Atorvastatin Calcium) 20 Mg Tab 20 Mg PO DAILY Aspirin 81 Mg Chew 81 Mg CHEW DAILY Active Ordered Medications Current Medications IV Flush (NS Flush) 2 ml UNSCH PRN IVF FLUSH AFTER USING IV ACCESS; Start 05/07 at 09:45; Stop 05/07/16 at 11:43; Status DC Metoclopramide HCl (Reglan Inj) 10 mg ONCE ONCE IV PUSH Last administered on 10:12; Start 05/07/16 at 09:45; Stop 05/07/16 at 09:46; Status DC Hydromorphone HCl 1 mg 1 mg ONCE ONCE IV PUSH Last administered on 05/07/16 10:12; Start 05/07/16 at 09:45; Stop 05/07/16 at 09:46; Status DC Sodium Chloride (NS 1000 ml Inj) 1,000 ml @ 999 mls/hr BOLUS ONCE IV Last administered on 05/07/16 10:11; Start 05/07/16 at 09:45; Stop 05/07/16 at 10:45 ; Status DC IV Flush (NS Flush) 2 ml UNSCH PRN FLUSH FLUSH AFTER USING IV ACCESS; Start at 11:45 IV Flush (NS Flush) 2 ml BID FLUSH Last administered on 05/08/16 09:32; Start 05/07/16 at 21:00 Ondansetron HCl (Zofran Inj) 4 mg Q6H PRN IVP NAUSEA OR VOMITING Last administered on 05/07/16 21:50; Start 05/07/16 at 11:45 Acetaminophen (Tylenol) 650 mg Q6H PRN PO PAIN SCALE 1 TO 2; Start 05/07/16 at 11:45 Acetaminophen/ Hydrocodone Bitart ([place] 5-325 Mg) 1 tab Q4H PRN PO PAIN SCALE 3 TO 5; Start 05/07/16 at 11:45 Acetaminophen/ Hydrocodone Bitart ([place] 10-325 Mg) 1 tab Q4H PRN PO PAIN SCALE 6 TO 10 Last administered on 05/08/16 11:56; Start 05/07/16 at 11:45 Morphine Sulfate (Morphine Inj) 4 mg Q3H PRN IV BREAKTHROUGH PAIN; Start at 11:45 Naloxone HCl (Narcan Inj) 0.4 mg UNSCH PRN IV SEE LABEL COMMENTS; Start at 11:45 Enalaprilat (Vasotec Inj) 1.25 mg Q6H PRN IV SBP> OR = 180, DBP> OR = 100; Start 05/07/16 at 11:45 Atorvastatin Calcium (Lipitor) 20 mg DAILY PO ; Start 05/08/16 at 09:00; Stop at 09:00; Status DC Topiramate (Topamax) 25 mg DAILY PO ; Start 05/08/16 at 09:00; Stop 05/08/16 at 09:00; Status DC Atorvastatin Calcium (Lipitor) 20 mg DAILY@21 PO Last administered on 20:43; Start 05/07/16 at 21:00 Topiramate (Topamax) 25 mg BID PO Last administered on 05/08/16 09:30; Start 05/07/16 at 21:00 Albuterol Sulfate (Albuterol Neb) 2.5 mg Q2HR NEB PRN NEB SOB/WHEEZING; Start 05/07/16 at 12:00 Gadodiamide (Omniscan Pf Inj) 20 ml STK-MED ONCE IV Last administered on 14:42; Start 05/07/16 at 14:42; Stop 05/07/16 at 14:43; Status DC Family History Mother-Heart disease, DM Father-cancer Social History Tobacco-40 years pack history Alcohol-rarely Denies Illicit drug use Physical Exam Vital Signs Vital Signs Date Time Temp Pulse Resp B/P Pulse Ox O2 Delivery O2 Flow Rate FiO2 05/08/16 09:01 94 05/08/16 08:00 98.1 46 20 121/65 91 05/08/16 04:00 97.8 48 20 116/64 98 05/08/16 00:00 98.0 55 20 138/63 93 05/07/16 22:00 98.0 61 20 135/75 95 05/07/16 20:00 98.2 47 20 143/80 94 05/07/16 16:00 97.8 50 20 168/78 94 05/07/16 13:32 52 18 140/75 95 Room Air 05/07/16 11:57 50 18 157/81 94 Room Air 05/07/16 11:47 97 21 Physical Exam The patient is alert, awake and oriented to time, place and person. Speech is fluent. GCS 15 Cranial nerve examination demonstrates the pupils to be equal, round, and reactive to light. Extra-ocular movements are intact. Facial motor and sensory function are normal and symmetrical. Gross hearing is intact, bilaterally. The uvula is midline and elevates symmetrically with the soft palate. Sternocleidomastoid and trapezius muscles have normal and symmetrical strength. Other cranial nerves are intact. Neck is soft and supple. Cervical spine has a full range of motion in anterior flexion, extension, lateral bending, and rotation without pain. There is no tenderness to palpation to the spinous processes or paraspinal muscles. Muscle testing reveals normal bulk and tone overall without rigidity, spasticity , fasciculations, or atrophy. Muscle strength is 5/5 in all muscle groups of both upper extremities including deltoid, biceps, triceps, brachioradialis, wrist extension and medical transcriptionist. In the lower extremities, strength is 5/5 in both iliopsoas, quadriceps, hamstrings, plantar flexion, dorsiflexion, and extensor hallicus longus. Sensory examination is intact to light touch and sharp/dull discrimination in both the upper and lower extremities, symmetrically. Deep tendon reflexes are 2+ and symmetrical in the biceps, triceps, and brachioradialis, bilaterally, in the upper extremities. In the lower extremities , the patellar and Achilles are 2+, bilaterally. There is a bilateral plantar flexion response. Hoffmanns sign is negative. There is no clonus or other abnormal reflexes noted. Cerebellar examination is intact to [id number] test, rapid rhythmic alternating motion. There is no dysmetria, dysdiadochokinesia, truncal ataxia, or tremor. Laboratory Laboratory Tests Test 05/08/16 05:36 White Blood Count 6.8 Red Blood Count 4.28 Hemoglobin 13.3 Hematocrit 39.6 Mean Corpuscular Volume 92.5 Mean Corpuscular Hemoglobin 31.0 Mean Corpuscular Hemoglobin 33.5 Concent Red Cell Distribution Width 13.1 Platelet Count 196 Mean Platelet Volume 7.8 Neutrophils (%) (Auto) 54.9 Lymphocytes (%) (Auto) 35.6 Monocytes (%) (Auto) 5.8 Eosinophils (%) (Auto) 3.0 Basophils (%) (Auto) 0.7 Neutrophils # (Auto) 3.7 Lymphocytes # (Auto) 2.4 Monocytes # (Auto) 0.4 Eosinophils # (Auto) 0.2 Basophils # (Auto) 0.0 CBC Comment DIFF FINAL Differential Comment Erythrocyte Sedimentation Rate 12 Sodium Level 142 Potassium Level 3.7 Chloride Level 106 Carbon Dioxide Level 26.7 Anion Gap 9 Blood Urea Nitrogen 9 Creatinine 0.81 Estimat Glomerular Filtration 100 Rate Random Glucose 88 Calcium Level 8.4 Result Diagram: 05/08/16 0536 05/08/16 0536 Imaging Last Impressions Skull X-Ray 05/07/16 0000 Signed Impressions: Service Date/Time: Saturday, May 07, 2016 13:23 - CONCLUSION: Post MRI imaging demonstrates unchanged position of the valve setting at 135 degrees. Tre Marks MD Shunt Study (Imaging) 05/07/16 0000 Signed Impressions: Service Date/Time: Saturday, May 07, 2016 09:56 - CONCLUSION: Intact shunt. Tre Marks MD Head/Brain Mag Res Venography 05/07/16 0000 Signed Impressions: Service Date/Time: Saturday, May 07, 2016 13:01 - CONCLUSION: No venous thrombus is seen. Tre Marks MD Head CT 05/07/16 0000 Signed Impressions: Service Date/Time: Saturday, May 07, 2016 09:46 - CONCLUSION: No acute intracranial disease. Scattered sinus disease. Tre Marks MD Brain MRI 05/07/16 0000 Signed Impressions: Service Date/Time: Saturday, May 07, 2016 13:01 - CONCLUSION: 1. No acute hemorrhage, mass or infarction. 2. Ventricular shunt catheter in place with the tip projected in the left basal ganglia. There is no evidence of hydrocephalus. 3. Mucosal thickening in the right maxillary sinus. Thierry Marin MD Attending Statement I have reviewed his clinical and further studies. neuro checks in a serial fashion. His MRI does not show evidence of shunt malfunction. I reviewed his shunt studies. MR V show no evidence of venous thrombosis. Pre-and post x- rays obtained and show no change on the shunt settings. There is no need for neurosurgical intervention at this time. Respiratory. pulmonary toilette, nasotracheal suction, and breathing treatments with nebulizers. Consult neurology for management of headaches PT and OT Nutrition. NPO Renal. monitor closely urine output, BUN and creatinine Endocrine. Monitor serial Acu checks and SSI for tight control ID monitor for signs of infection Protonix for stress ulcer prophylaxis Victorino hose and SCD's for DVT prophylaxis Fred Mirza MD May 08, 2016 11:24
--- NOTE | 2016-05-08 11:30 | HHI.FPPN ---
Subjective Remarks Pt seen and examined this morning. Slept well overnight. Just woke up, no headache this morning. He states that the pain will start after he starts coughing. States the pain starts in his lower left neck and then shoots around to his head. (Nick Feng MD R1) Objective Vitals Vital Signs Date Time Temp Pulse Resp B/P Pulse Ox O2 Delivery O2 Flow Rate FiO2 05/08/16 09:01 94 05/08/16 08:00 98.1 46 20 121/65 91 05/08/16 04:00 97.8 48 20 116/64 98 05/08/16 00:00 98.0 55 20 138/63 93 05/07/16 22:00 98.0 61 20 135/75 95 05/07/16 20:00 98.2 47 20 143/80 94 05/07/16 16:00 97.8 50 20 168/78 94 05/07/16 13:32 52 18 140/75 95 Room Air 05/07/16 11:57 50 18 157/81 94 Room Air 05/07/16 11:47 97 21 I/O 05/07/16 05/07/16 05/07/16 05/08/16 05/08/16 05/08/16 07:00 15:00 23:00 07:00 15:00 23:00 Intake Total 0 ml 0 ml Balance 0 ml 0 ml Intake Oral 0 ml 0 ml # Voids 1 2 1 # Bowel Movements 0 0 (Nick Feng MD R1) Result Diagram: 05/08/16 0536 05/08/16 0536 Objective Remarks CONSTITUTIONAL/GEN: normally nourished, in NAD. LUNGS: clear A-P, respiratory effort is normal. CARDIOVASCULAR: RR without murmur or gallop. No significant edema. GI/ABD: soft without masses, without organomegaly. BS + NEURO: No focal deficits. SKIN: color normal, no rashes noted. MUSC: Extremities are normal in appearance. PSYCH/MENTAL STATUS: Alert and oriented x 3. (Nick Feng MD R1) A/P Assessment and Plan 55 y/o male with history of dural sinus thrombosis and KISS SETTER HAND shunt presents with headache. Neurosurgery aware of patient and is undergoing head imaging. Will admit for pain control and management by neuro. Discharge Planning Pending neurosurgery recommendations (Nick Feng MD R1) Attending Attestation Patient seen and examined. Case reviewed and discussed with the resident team. Agree with plan of care as discussed with me and documented in the resident note. (Alexia Kaba MD) Problem List: (1) Headache Status: Acute Plan: DDx: KISS SETTER HAND shunt malfunction, thrombosis, migraine, tension headache, pinched nerve, temporal arteritis History of cranial venous thromboses and pseudotumor cerebri. Acute onset of headache since last night. No red flag symptoms. Head CT: No acute disease Shunt study: Intact shunt Brain MRI: No acute disease. MRV: No thrombus Etiology appears to be more related to cervical spine process than cranial origin -Neurosurgery consult: Appreciate recs -Dr. Mirza aware of patient -No evidence of thrombus -Await further recs for imaging, due to having to recalibrate the shunt after MRIs -Topamax 25 mg by mouth twice a day -Pain control with Tylenol, [place], morphine when necessary -Zofran when necessary nausea (2) Pseudotumor cerebri Status: Chronic Plan: History of pseudotumor stream I. KISS SETTER HAND shunt in place. History of serial LPs to decrease pressure. -See plan above. Appreciate neuro surgery recs (3) Hyperlipidemia Status: Chronic Plan: Continue home Lipitor 20 mg daily (4) Nicotine dependence Status: Chronic Plan: Patient requests nicotine patch -Daily nicotine patch and removal -Discussed risks of smoking and options for quitting (5) FEN Status: Acute Plan: Fluids: none Electrolytes: wnl. continue replace as needed Nutrition: Regular DVT ppx: SCDs (Nick Feng MD R1) Problem Qualifiers (1) Headache: (2) Hyperlipidemia: Qualified Code: E78.00 - Pure hypercholesterolemia (3) Nicotine dependence: Qualified Code: F17.210 - Cigarette nicotine dependence without complication Nick Feng MD R1 May 08, 2016 11:30 Alexia Kaba MD May 08, 2016 11:49
[2016-05-08] MEDS: ONDANSETRON HCL 4 MG/2 ML VIAL IVP PRN ×2 (15:53→23:36)
[2016-05-08] MEDS: MORPHINE SULFATE 4 MG/ML INJ IV PRN ×2 (15:54→23:37)
[2016-05-08] MEDS: METHOCARBAMOL 500 MG TAB PO SCH (20:25)
[2016-05-08] MEDS: ATORVASTATIN 20 MG TAB PO SCH (20:25)
[2016-05-09] VITALS: BP 145/82; PULSE 54; RESP 16; TEMP 97.9; O2SAT 93
[2016-05-09 04:00] VITALS: BP 144/82; PULSE 45; RESP 16; TEMP 98.4; O2SAT 93
[2016-05-09] MEDS: METHOCARBAMOL 500 MG TAB PO SCH ×2 (06:27→13:21)
[2016-05-09 08:00] VITALS: BP 124/65; PULSE 63; RESP 22; TEMP 97.3; O2SAT 95
[2016-05-09] MEDS: TOPIRAMATE 25 MG TAB PO SCH (08:26)
[2016-05-09] MEDS: ACETAMINOPHEN/HYDROcodone 325 MG/10 MG TAB PO PRN ×2 (08:29→13:22)
[2016-05-09] MEDS: SODIUM CHLORIDE 0.9% FLUSH 5 ML FLUSH FLUSH SCH (08:29)
[2016-05-09 08:48] VITALS: O2SAT 91
--- NOTE | 2016-05-09 10:50 | HHI.FPPN ---
Subjective Remarks No acute events overnight. Vital signs unremarkable except for a low pulse which is patient's baseline. This morning he reports that he is back at his baseline. Denies nausea/vomiting and headaches this morning. He does develop headaches at the end of the day but this is his baseline. Has not woken up with a headache. (Leny Diaz MD R2) Objective Vitals Vital Signs Date Time Temp Pulse Resp B/P Pulse Ox O2 Delivery O2 Flow Rate FiO2 05/09/16 08:00 97.3 63 22 124/65 95 05/09/16 04:00 98.4 45 16 144/82 93 05/09/16 00:00 97.9 54 16 145/82 93 05/08/16 20:00 97.6 58 18 138/73 93 05/08/16 16:00 97.7 58 20 125/75 93 05/08/16 12:00 97.8 49 20 125/60 91 I/O 05/08/16 05/08/16 05/08/16 05/09/16 05/09/16 05/09/16 07:00 15:00 23:00 07:00 15:00 23:00 Intake Total 0 ml 722 ml 120 ml Output Total 100 ml Balance 0 ml 722 ml 20 ml Intake Oral 0 ml 720 ml 120 ml IV Total 2 ml Output Urine Total 100 ml # Voids 1 5 2 # Bowel Movements 0 0 0 (Leny Diaz MD R2) Result Diagram: 05/08/16 0536 05/08/16 0536 Objective Remarks GEN: Well-developed, well-nourished patient. No acute distress. CV: Regular rate and rhythm without obvious murmurs LUNGS: Clear to auscultation bilaterally. Normal respiratory effort. No wheezes , rales, rhonchi. EXT: No edema. No calf tenderness. NEURO/PSYCH: Awake, alert. Appropriate insight and judgment. Normal speech ( Leny Diaz MD R2) A/P Assessment and Plan 55 y/o male with history of dural sinus thrombosis and PAPER CONTROL CLERK shunt presents with headache. Admitted for intractable FRANCO. Discharge Planning Today pending negative cervical neck CT. Pt to have close follow up with her neurologist Dr. Euceda. dw Dr. Feng wdw Dr. Kaba (Leny Diaz MD R2) Attending Attestation Patient seen and examined. Case reviewed and discussed with the resident team. Agree with plan of care as discussed with me and documented in the resident note. (Alexia Kaba MD) Problem List: (1) Headache Status: Acute Plan: DDx: PAPER CONTROL CLERK shunt malfunction, thrombosis, migraine, tension headache, pinched nerve, temporal arteritis History of cranial venous thromboses and pseudotumor cerebri. Acute onset of headache that was present in the morning when patient woke up on the day of admission. No red flag symptoms. Head CT: No acute disease Shunt study: Intact shunt Brain MRI: No acute disease. MRV: No thrombus Etiology appears to be more related to cervical spine process than cranial origin Pt. already has a neurologist that he follows with for his chronic headaches that is currently being worked up by Dr. Euceda. Recommended close follow up next week. Pt to call office today. -Neurosurgery consult: Appreciate recs -No evidence of thrombus or shunt malformation -no further neurosurgical intervention at this time -Topamax 25 mg by mouth twice a day -Robaxin 1000mg q8 (2) Pseudotumor cerebri Status: Chronic Plan: History of pseudotumor stream I. PAPER CONTROL CLERK shunt in place. History of serial LPs to decrease pressure. -See plan above. (3) Hyperlipidemia Status: Chronic Plan: Continue home Lipitor 20 mg daily (4) Nicotine dependence Status: Chronic Plan: Patient requests nicotine patch -Daily nicotine patch and removal -Discussed risks of smoking and options for quitting (5) FEN Status: Acute Plan: Fluids: none Electrolytes: wnl. continue replace as needed Nutrition: Regular DVT ppx: SCDs (Leny Diaz MD R2) Problem Qualifiers (1) Headache: (2) Hyperlipidemia: Qualified Code: E78.00 - Pure hypercholesterolemia (3) Nicotine dependence: Qualified Code: F17.210 - Cigarette nicotine dependence without complication Leny Diaz MD R2 May 09, 2016 10:50 Alexia Kaba MD May 09, 2016 15:43
[2016-05-09] MEDS ORDERED: TOPI1TAB97 PO (10:52)
[2016-05-09] MEDS ORDERED: HYDR-3583 PO (10:52)
[2016-05-09] MEDS ORDERED: METH500T3 PO (10:52)
--- NOTE | 2016-05-09 10:53 | HHI.DCPOC ---
Discharge Care Plan Diagnosis: (1) Pseudotumor cerebri (2) Intractable headache Goals to Promote Your Health * To prevent worsening of your condition and complications * To maintain your health at the optimal level Directions to Meet Your Goals Take your medications as prescribed Follow your dietary instruction Follow activity as directed Keep your appointments as scheduled Take your immunizations and boosters as scheduled If your symptoms worsen call your PCP, if no PCP go to Urgent Care Center or Emergency Room Smoking is Dangerous to Your Health. Avoid second hand smoke Call the 24-hour hour crisis hotline for domestic abuse at Leny Diaz MD R2 May 09, 2016 10:53
[2016-05-09 12:03] VITALS: BP 136/73; PULSE 50; RESP 22; TEMP 98.4; O2SAT 91
--- NOTE | 2016-05-09 15:23 | HHI.DS ---
Discharge Summary Admission Date May 07, 2016 at 11:25 Discharge Date: May 09, 2016 Admitting Diagnosis intractable headache (1) Headache Diagnosis: Principal Plan: DDx: NEWSPAPER EDITOR shunt malfunction, thrombosis, migraine, tension headache, pinched nerve, temporal arteritis History of cranial venous thromboses and pseudotumor cerebri. Acute onset of headache that was present in the morning when patient woke up on the day of admission. No red flag symptoms. Head CT: No acute disease Shunt study: Intact shunt Brain MRI: No acute disease. MRV: No thrombus Etiology appears to be more related to cervical spine process than cranial origin Pt. already has a neurologist that he follows with for his chronic headaches that is currently being worked up by Dr. Euceda. Recommended close follow up next week. Pt to call office today. -Neurosurgery consult: Appreciate recs -No evidence of thrombus or shunt malformation -no further neurosurgical intervention at this time -Topamax 25 mg by mouth twice a day -Robaxin 1000mg q8 (2) Pseudotumor cerebri Diagnosis: Secondary Plan: History of pseudotumor stream I. NEWSPAPER EDITOR shunt in place. History of serial LPs to decrease pressure. -See plan above. (3) Hyperlipidemia Diagnosis: Secondary Plan: Continue home Lipitor 20 mg daily (4) Nicotine dependence Diagnosis: Secondary Plan: Patient requests nicotine patch -Daily nicotine patch and removal -Discussed risks of smoking and options for quitting (5) FEN Diagnosis: Secondary Plan: Fluids: none Electrolytes: wnl. continue replace as needed Nutrition: Regular DVT ppx: SCDs Consultants Neurosurgery Brief History 55 y/o male with history of dural venous thrombosis and pseudotumor cerebri, s/ p NEWSPAPER EDITOR shunt placement presents with headache. States he sneezed last night, which game him a mild headache. Went to sleep. Woke up with a headache, rates it 10/10, very severe. Then his nausea/vomiting started. Vomited several times. Also having some blurry vision. The pain is mainly on his left temporal side. Been constant, pain waxed and wained. Sharp and stabbing. 2nd worse headache of life. states that when he gets bad headaches, abnormal arm/leg movements , history of previous stroke. History of similar pain, working up possible pinched nerve in back of neck. No neurological symptoms. Denies any dizziness, ataxia. No changes in sensation/motor function. He is currently being worked up for increased intracranial pressure, that may be causing a pinched nerve. Pain worse when laying down. Stretching his neck, sometimes helps. Cough/sneezing makes it worse. Didn't take any medication for it. Woke up this morning with chills, diaphoresis. Has had productive cough for week. Has history of asthma, bronchitis. Is a smoker. History of stroke, cardiac arrest in 2000. History of dural venous thrombosis in 2000 and was on anticoagulation for about 3 or 4 years, hospitalization in October 2005 with an MRV with far right transverse venous sinus thrombosis and was on Xarelto, pseudotumor cerebri status post NEWSPAPER EDITOR shunt placement on , no longer on anticoagulation. Sees neurologist, Dr. Euceda. CBC/BMP: 05/08/16 0536 05/08/16 0536 Significant Findings Laboratory Tests Test 05/07/16 05/08/16 10:00 05:36 Eosinophils (%) (Auto) 4.1 % (0.0-4.0) Estimat Glomerular Filtration 78 ML/MIN (>89) Rate Random Glucose 125 MG/DL (74-106) Aspartate Amino Transf 11 U/L (15-37) (AST/SGOT) Albumin 3.3 GM/DL (3.4-5.0) Red Blood Count 4.28 MIL/MM3 (4.50-5.90) Calcium Level 8.4 MG/DL (8.5-10.1) Imaging Last Impressions Skull X-Ray 05/07/16 0000 Signed Impressions: Service Date/Time: Saturday, May 07, 2016 13:23 - CONCLUSION: Post MRI imaging demonstrates unchanged position of the valve setting at 135 degrees. Tre Marks MD Shunt Study (Imaging) 05/07/16 0000 Signed Impressions: Service Date/Time: Saturday, May 07, 2016 09:56 - CONCLUSION: Intact shunt. Tre Marks MD Head/Brain Mag Res Venography 05/07/16 0000 Signed Impressions: Service Date/Time: Saturday, May 07, 2016 13:01 - CONCLUSION: No venous thrombus is seen. Tre Marks MD Head CT 05/07/16 0000 Signed Impressions: Service Date/Time: Saturday, May 07, 2016 09:46 - CONCLUSION: No acute intracranial disease. Scattered sinus disease. Tre Marks MD Brain MRI 05/07/16 0000 Signed Impressions: Service Date/Time: Saturday, May 07, 2016 13:01 - CONCLUSION: 1. No acute hemorrhage, mass or infarction. 2. Ventricular shunt catheter in place with the tip projected in the left basal ganglia. There is no evidence of hydrocephalus. 3. Mucosal thickening in the right maxillary sinus. Thierry Marin MD PE at Discharge GEN: Well-developed, well-nourished patient. No acute distress. CV: Regular rate and rhythm without obvious murmurs LUNGS: Clear to auscultation bilaterally. Normal respiratory effort. No wheezes , rales, rhonchi. EXT: No edema. No calf tenderness. NEURO/PSYCH: Awake, alert. Appropriate insight and judgment. Normal speech Hospital Course 55 y/o male with history of cranial venous thromboses, pseudotumor cerebri with NEWSPAPER EDITOR shunt placement presents with intractable headache. Patient was admitted and neurosurgery consult to evaluate shunt. Images were performed of the head which showed no signs of thrombosis. NEWSPAPER EDITOR shunt intact and working well. Patient's headache improved. Patient back to baseline of some headaches toward end of the evening. Discharged in stable condition with follow-up with neurology for headache management and possible further imaging. Pt Condition on Discharge: Stable Discharge Disposition: Discharge Home Discharge Instructions DIET: Follow Instructions for: As Tolerated, No Restrictions Activities you can perform: Regular-No Restrictions Follow up Referrals: Appointment for Follow Up - 1 Week with PCP Neurology - 1 Week with Jose Euceda PhD New Medications: Hydrocodone-Acetaminophen (Hydrocodone-Acetaminophen) 10-325 mg Tab 1 TAB PO Q4H PRN pain #30 TAB Methocarbamol (Methocarbamol) 500 Mg Tab 1000 MG PO Q8HR #30 TAB Continued Medications: Aspirin (Aspirin) 81 Mg Chew 81 MG CHEW DAILY Ref 0 TAB Atorvastatin (Lipitor) 20 Mg Tab 20 MG PO DAILY hyperlipidemia #30 Ref 0 TAB Topiramate (Topiramate) 25 Mg Tab 25 MG PO BID Control Seizures #60 Ref 0 TAB Discontinued Medications: Topiramate (Topamax) 25 Mg Tab 25 MG PO DAILY Headaches #30 Ref 3 TAB Nick Feng MD R1 May 09, 2016 15:23
== END 2016-05-09 18:20 | disposition home or self-care (01) | DRG 103 ==
LOC: NEPA 09:17 → NEDA 11:25 → N04B 14:42
PROVIDERS: ADMIT Family Medicine; ATTEND Family Medicine
DX: R51 Headache (principal); D68.59 Other primary thrombophilia; Z86.74 Personal history of sudden cardiac arrest; G93.2 Benign intracranial hypertension; J45.909 Unspecified asthma, uncomplicated; Z88.1 Allergy status to other antibiotic agents; H53.8 Other visual disturbances; R00.1 Bradycardia, unspecified; E78.5 Hyperlipidemia, unspecified; F17.210 Nicotine dependence, cigarettes, uncomplicated; Z86.73 Personal history of transient ischemic attack (TIA), and cerebral infarction without residual deficits; Z98.2 Presence of cerebrospinal fluid drainage device
CPT/HCPCS: 70250; 70450; 70546; 70551; 71010; 72040; 74000; 80048; 80053; 85025; 85610; 85652; 85730; 96374; 96375; A9579; J1170; J2270; J2405; J2765; J7030

== ENCOUNTER 2016-08-26 17:37 | Emergency (ER) | payer OTHER ==
[~2016-08-26] VITALS: Ht 180.3 cm; Wt 115.0 kg
[~2016-08-26 17:37] MED LIST changes: +ASPI81CH CHEW; -HYDR-3516 PO; +HYDR-3583 PO; -MECL-62 PO; +METH500T3 PO; -MUCI600T PO; -TOPA25TA8 PO; +TOPI1TAB97 PO
[2016-08-26 17:39] VITALS: BP 150/86; PULSE 75; RESP 15; TEMP 97.9; O2SAT 95
[2016-08-26] MEDS ORDERED: TOPI1TAB32 PO (17:59)
[2016-08-26] MEDS ORDERED: OXYC1TAB35 PO (17:59)
--- NOTE | 2016-08-26 18:06 | PD ---
HPI Chief Complaint: Headache Time Seen by Provider: 18:05 Travel History International Travel<30 days: No Contact w/Intl Traveler<30days: No Traveled to known affect area: No History of Present Illness HPI 55-year-old male with history of CVA, pseudotumor cerebri status post RETAIL LOSS PREVENTION OFFICER shunt placement, presents to emergency department for evaluation of headache. Mild to phobia and dizziness associated with this which is normal for him. Patient has history of headaches. This is typical of his usual headache, except has lasted longer. Denies any head trauma. No nausea or vomiting. No focal deficits or weakness. Patient denies any recent illnesses, fever, or chills. He has no other symptoms to report at this time. [facility] Past Medical History Arthritis: No Asthma: Yes Blood Disorders: No Heart Rhythm Problems: No Cancer: No Cardiac Catheterization: Yes Cardiovascular Problems: Yes (cardiac arrest 2000) High Cholesterol: Yes Chest Pain: No Congestive Heart Failure: No COPD: No Cerebrovascular Accident: Yes (cva 2000) Diminished Hearing: No Endocrine: No Gastrointestinal Disorders: No GERD: No Genitourinary: No Headaches: Yes (HX PAPPILARIEDEMA, ICP, ) Hiatal Hernia: No Hypertension: No Immune Disorder: No Implanted Vascular Access Dvce: No Musculoskeletal: No Neurologic: Yes Psychiatric: No Reproductive: No Respiratory: Yes Immunizations Current: No Migraines: No Seizures: Yes (QUESTIONALBLE FOCAL 2000, NO LONGER MEDICATED FOR) Sleep Apnea: No Ulcer: No Past Surgical History Abdominal Surgery: No Cardiac Surgery: Yes Ear Surgery: Yes Endocrine Surgery: No Eye Surgery: No Genitourinary Surgery: No Gynecologic Surgery: No Neurologic Surgery: No Oral Surgery: Yes (tonsils ) Thoracic Surgery: No Other Surgery: Yes (SHUNT 12/16, clots in brain x 2) Social History Alcohol Use: Yes (rarely) Tobacco Use: Yes (1/2 PPD) Substance Use: No Allergies-Medications (Allergen,Severity, Reaction): Coded Allergies: Levaquin (Verified Allergy, Severe, Anaphylaxis, 05/07/16) Uncoded Allergies: Heart lead stickers (Allergy, Mild, 01/18/16) skin truns red and comes off when stickies come off Reported Meds & Prescriptions Reported Meds & Active Scripts Active Lipitor (Atorvastatin Calcium) 20 Mg Tab 20 Mg PO DAILY Reported Oxycodone-Acetaminophen 7.5-325 mg Tab 1 Tab PO Q6H PRN Topiramate 100 Mg Tablet 100 Mg PO BID Review of Systems Except as stated in HPI: all other systems reviewed are Neg Physical Exam Narrative GENERAL: Well-nourished male patient, in no acute distress SKIN: Focused skin assessment warm/dry. HEAD: Atraumatic. Normocephalic. EYES: Pupils equal and round. No scleral icterus. No injection or drainage. ENT: No nasal bleeding or discharge. Mucous membranes pink and moist. NECK: Trachea midline. No JVD. CARDIOVASCULAR: Regular rate and rhythm. No murmur appreciated. RESPIRATORY: No accessory muscle use. Clear to auscultation. Breath sounds equal bilaterally. GASTROINTESTINAL: Abdomen soft, non-tender, nondistended. Hepatic and splenic margins not palpable. MUSCULOSKELETAL: No obvious deformities. No clubbing. No cyanosis. No edema. NEUROLOGICAL: Awake and alert. No obvious cranial nerve deficits. Motor grossly within normal limits. Normal speech. PSYCHIATRIC: Appropriate mood and affect; insight and judgment normal. Data Data Last Documented VS Vital Signs Date Time Temp Pulse Resp B/P Pulse Ox O2 Delivery O2 Flow Rate FiO2 08/26/16 19:58 57 16 115/71 95 Room Air 08/26/16 17:39 97.9 Orders Iv Access Insert/Monitor (08/26/16 18:05) Complete Blood Count With Diff (08/26/16 18:05) Basic Metabolic Panel (Bmp) (08/26/16 18:05) Coag Profile (08/26/16 18:05) Ct Brain W/O Iv Contrast(Rout) (08/26/16 ) Ketorolac Inj (Toradol Inj) (08/26/16 19:00) Metoclopramide Inj (Reglan Inj) (08/26/16 19:00) Diphenhydramine Inj (Benadryl Inj) (08/26/16 19:00) Ondansetron Inj (Zofran Inj) (08/26/16 20:30) Morphine Inj (Morphine Inj) (08/26/16 20:30) Labs Laboratory Tests Test 08/26/16 18:00 White Blood Count 5.8 TH/MM3 Red Blood Count 4.66 MIL/MM3 Hemoglobin 14.9 GM/DL Hematocrit 42.9 % Mean Corpuscular Volume 92.0 FL Mean Corpuscular Hemoglobin 32.0 PG Mean Corpuscular Hemoglobin 34.8 % Concent Red Cell Distribution Width 13.4 % Platelet Count 214 TH/MM3 Mean Platelet Volume 7.6 FL Neutrophils (%) (Auto) 68.6 % Lymphocytes (%) (Auto) 24.2 % Monocytes (%) (Auto) 4.0 % Eosinophils (%) (Auto) 2.6 % Basophils (%) (Auto) 0.6 % Neutrophils # (Auto) 4.0 TH/MM3 Lymphocytes # (Auto) 1.4 TH/MM3 Monocytes # (Auto) 0.2 TH/MM3 Eosinophils # (Auto) 0.1 TH/MM3 Basophils # (Auto) 0.0 TH/MM3 CBC Comment DIFF FINAL Differential Comment Prothrombin Time 11.6 SEC Prothromb Time International 1.0 RATIO Ratio Activated Partial 30.2 SEC Thromboplast Time Sodium Level 138 MEQ/L Potassium Level 3.8 MEQ/L Chloride Level 107 MEQ/L Carbon Dioxide Level 22.4 MEQ/L Anion Gap 9 MEQ/L Blood Urea Nitrogen 11 MG/DL Creatinine 1.02 MG/DL Estimat Glomerular Filtration 76 ML/MIN Rate Random Glucose 133 MG/DL Calcium Level 8.7 MG/DL [facility] Medical Decision Making Medical Screen Exam Complete: Yes Emergency Medical Condition: Yes Medical Record Reviewed: Yes Differential Diagnosis Migraine with or without aura versus headache cluster versus tension versus sinus versus RETAIL LOSS PREVENTION OFFICER shunt malfunction versus ICH Narrative Course 55-year-old male presents to emergency department for evaluation of a headache. Patient appears without distress. Neuro exam is nonfocal. EKG is reviewed by my attending physician without any acute ectopy or arrhythmia noted. Laboratory Tests Test 08/26/16 18:00 White Blood Count 5.8 TH/MM3 Red Blood Count 4.66 MIL/MM3 Hemoglobin 14.9 GM/DL Hematocrit 42.9 % Mean Corpuscular Volume 92.0 FL Mean Corpuscular Hemoglobin 32.0 PG Mean Corpuscular Hemoglobin 34.8 % Concent Red Cell Distribution Width 13.4 % Platelet Count 214 TH/MM3 Mean Platelet Volume 7.6 FL Neutrophils (%) (Auto) 68.6 % Lymphocytes (%) (Auto) 24.2 % Monocytes (%) (Auto) 4.0 % Eosinophils (%) (Auto) 2.6 % Basophils (%) (Auto) 0.6 % Neutrophils # (Auto) 4.0 TH/MM3 Lymphocytes # (Auto) 1.4 TH/MM3 Monocytes # (Auto) 0.2 TH/MM3 Eosinophils # (Auto) 0.1 TH/MM3 Basophils # (Auto) 0.0 TH/MM3 CBC Comment DIFF FINAL Differential Comment Prothrombin Time 11.6 SEC Prothromb Time International 1.0 RATIO Ratio Activated Partial 30.2 SEC Thromboplast Time Sodium Level 138 MEQ/L Potassium Level 3.8 MEQ/L Chloride Level 107 MEQ/L Carbon Dioxide Level 22.4 MEQ/L Anion Gap 9 MEQ/L Blood Urea Nitrogen 11 MG/DL Creatinine 1.02 MG/DL Estimat Glomerular Filtration 76 ML/MIN Rate Random Glucose 133 MG/DL Calcium Level 8.7 MG/DL Lab work is without acute concern. Last Impressions Head CT 08/26/16 0000 Signed Impressions: Service Date/Time: Friday, August 26, 2016 18:21 - CONCLUSION: Stable appearance with no evidence of hemorrhage or hydrocephalus. Thierry Marin MD Patient was treated for pain with Toradol and IV fluids. Upon reassessment, patient states his pain has decreased but still persists. States that morphine typically handles this headache when he gets to this point. Patient will be given 1 dose of IV morphine. [id number] patient is resting comfortably in his bed with his eyes closed. He will be discharged at this time. He is encouraged to follow-up with primary care provider and return immediately with any acute worsening symptoms. Diagnosis Primary Impression: Intractable headache Qualified Code: R51 - Intractable headache, unspecified chronicity pattern, unspecified headache type Referrals: Neurologist Primary Care Physician Patient Instructions: Acute Headache (ED), General Instructions Additional Instructions: Rest Maintain adequate oral hydration Follow-up with a primary care provider Return immediately with any acute worsening of symptoms Med/Other Pt SpecificInfo: No Change to Meds Disposition: 01 DISCHARGE HOME Condition: Stable BurchCassy arteaga SHIRAZ Aug 26, 2016 18:05
[2016-08-26 18:40] LABS: BASOPHIL % 0.6 % (0.0-2.0); EOSINOPHIL # 0.1 TH/MM3 (0-0.4); EOSINOPHIL % 2.6 % (0.0-4.0); HEMATOCRIT 42.9 % (39.0-51.0); HEMO FLAGS DIFF FINAL; LYMPH % 24.2 % (9.0-44.0); LYMPHOCYTE # 1.4 TH/MM3 (1.0-4.8); MEAN CORPUSCULAR HGB CONC 34.8 % (32.0-36.0); NEUT % 68.6 % (16.0-70.0); PLATELET COUNT 214 TH/MM3 (150-450); RED BLOOD COUNT 4.66 MIL/MM3 (4.50-5.90); RED CELL DISTRIBUTION WIDTH 13.4 % (11.6-17.2); WHITE BLOOD COUNT 5.8 TH/MM3 (4.0-11.0)
[2016-08-26 18:45] LABS: APTT (PATIENT) 30.2 SEC (24.3-30.1); PROTHROMBIN TIME - PATIENT 11.6 SEC (9.8-11.6)
--- NOTE | 2016-08-26 18:49 | RADRPT ---
EXAM DATE/TIME: 08/26/2016 18:21 [place] COMPARISON: CT BRAIN W/O CONTRAST, May 07, 2016, 9:46. INDICATIONS : Severe headache. RADIATION DOSE: 56.35 CTDIvol (mGy) MEDICAL HISTORY : Seizures. Cardiovascular disease CVA SURGICAL HISTORY : Shunt placed one year ago ENCOUNTER: Initial ACUITY: 3 days PAIN SCALE: 7/10 LOCATION: Bilateral cranial TECHNIQUE: Multiple contiguous axial images were obtained of the head. Using automated exposure control and adj ustment of the mA and/or kV according to patient size, radiation dose was kept as low as reasonably a chievable to obtain optimal diagnostic quality images. DICOM format image data is available electro nically for review and comparison. FINDINGS: CEREBRUM: The right frontal ventriculostomy catheter remains in place and is unchanged in position. No evidence of midline shift, mass lesion, hemorrhage or acute infarction. No extra-axial fluid collections are seen. POSTERIOR FOSSA: The cerebellum and brainstem are intact. The 4th ventricle is midline. The cerebellopontine angle i s unremarkable. EXTRACRANIAL: The visualized portion of the orbits is intact. SKULL: The calvaria is intact. No evidence of skull fracture. CONCLUSION: Stable appearance with no evidence of hemorrhage or hydrocephalus. Thierry Marin MD on August 26, 2016 at 18:47 Board Certified Radiologist. This report was verified electronically.
[2016-08-26 18:50] LABS: BICARBONATE 22.4 MEQ/L (21.0-32.0); POTASSIUM 3.8 MEQ/L (3.5-5.1)
[2016-08-26] MEDS ORDERED: diphenhydrAMINE HCL 50 MG/ML VIAL IV PUSH ONE (19:00)
[2016-08-26] MEDS ORDERED: KETOROLAC TROMETHAMINE 30 MG/ML (IVP) VIAL IV PUSH ONE (19:00)
[2016-08-26] MEDS ORDERED: METOCLOPRAMIDE HCL 10 MG/2 ML VIAL IV PUSH ONE (19:00)
[2016-08-26 19:58] VITALS: BP 115/71; PULSE 57; RESP 16; O2SAT 95
[2016-08-26] MEDS ORDERED: MORPHINE SULFATE 4 MG/ML INJ IV PUSH ONE (20:30)
[2016-08-26] MEDS ORDERED: ONDANSETRON HCL 4 MG/2 ML VIAL IV PUSH ONE (20:30)
[2016-08-26 21:38] VITALS: BP 117/60
== END 2016-08-26 22:08 | disposition home or self-care (01) ==
LOC: NEPE 17:37
DX: R51 Headache (principal); F17.210 Nicotine dependence, cigarettes, uncomplicated; Z86.73 Personal history of transient ischemic attack (TIA), and cerebral infarction without residual deficits; E78.00 Pure hypercholesterolemia, unspecified; Z86.74 Personal history of sudden cardiac arrest; Z98.2 Presence of cerebrospinal fluid drainage device
CPT/HCPCS: 70450; 80048; 85025; 85610; 85730; 96374; 96375; 99285; J1200; J1885; J2270; J2405; J2765